=== PATIENT | female | born 1950 | race Caucasian/White ===

== ENCOUNTER 2016-09-27 21:05 | Emergency (ER) | payer SELFPAY ==
[~2016-09-27] VITALS: Ht 162.6 cm; Wt 89.5 kg
[~2016-09-27 21:05] MED LIST: QUIN40TA22 PO; SYN112 PO
[2016-09-27 21:35] VITALS: Ht 162.6 cm; Wt 89.5 kg
== END 2016-09-27 22:06 | disposition left against medical advice (07) ==
LOC: FTE 21:05
DX: Z53.21 Procedure and treatment not carried out due to patient leaving prior to being seen by health care provider (principal)

== ENCOUNTER 2017-08-27 23:54 | Inpatient (IN) | END 2017-08-28 16:22 | disposition home or self-care (01) | DRG 156 ==